=== PATIENT | female | born 1990 | race Hispanic/Latino ===

== ENCOUNTER 2021-03-28 04:25 | Emergency (ER) | payer OTHER ==
[2021-03-28 04:57] VITALS: BP 140/96
--- NOTE | 2021-03-28 07:01 | XRay Report ---
RIGHT KNEE 3 VIEWS INDICATION / CLINICAL INFORMATION: Injury with right knee pain. COMPARISON: None available. FINDINGS: BONES / JOINT(S): The joint spaces are well-maintained. No significant arthritis. There is no evidenc e of acute fracture, subluxation or joint effusion. SOFT TISSUES: No significant abnormality. ADDITIONAL FINDINGS: None. IMPRESSION: No acute abnormality. Signer Name: Manuel Damico MD Signed: 03/28/2021 6:56 AM Workstation Name: [id number]
[2021-03-28] MEDS ORDERED: KETOROLAC 60 MG/2 ML INJ IM ONE (07:30)
--- NOTE | 2021-03-28 07:36 | Emergency Department Report ---
ED Fall HPI - General Chief Complaint: Fall Stated Complaint: RIGHT KNEE PAIN Source: patient Mode of arrival: Wheelchair - History of Present Illness Initial Comments: 30-year-old female presents to the ED with right knee pain as the she trip and fell while walking downstairs. No obvious deformity noted. . She complained of pain when attempting to ambulate. No distracting injury noted. No obvious swelling noted. No ill appearance noted .No acute distress noted MD Complaint: fall -: This morning Fall From: down stairs (#) When Fall Occurred: 1-3 hours [employer] Fall Witnessed: no Place Fall Occurred: home Loss of Consciousness: none Prolonged Down Time?: no Symptoms Prior to Fall: none Location - Extremities: Right: Knee Severity: moderate Severity scale (0 -10): 7 Quality: aching Context: tripped/slipped Associated Symptoms: denies - Related Data Previous Rx's Medication Instructions Recorded Last Taken Type Naproxen [Naprosyn] 500 mg PO BID 15 Days #30 tablet 03/28/21 Unknown Rx Allergies Allergy/AdvReac Type Severity Reaction Status Date / Time No Known Allergies Allergy Verified 03/28/21 04:56 ED Review of Systems ROS: Stated complaint: RIGHT KNEE PAIN Other details as noted in HPI Constitutional: denies: chills, fever Eyes: denies: eye pain, eye discharge, vision change ENT: denies: ear pain, throat pain Respiratory: denies: cough, shortness of breath, wheezing Cardiovascular: denies: chest pain, palpitations Endocrine: no symptoms reported Gastrointestinal: denies: abdominal pain, nausea, diarrhea Genitourinary: denies: urgency, dysuria, discharge Musculoskeletal: arthralgia. denies: back pain, joint swelling Skin: denies: rash, lesions Neurological: denies: headache, weakness, paresthesias Psychiatric: denies: anxiety, depression Hematological/Lymphatic: denies: easy bleeding, easy bruising ED Past Medical Hx - Past Medical History Previous Medical History?: No - Social History Smoking Status: Never Smoker Substance Use Type: None - Medications Home Medications: Home Medications Medication Instructions Recorded Confirmed Last Taken Type Naproxen [Naprosyn] 500 mg PO BID 15 Days #30 tablet 03/28/21 Unknown Rx ED Physical Exam - General Limitations: No Limitations General appearance: alert, in no apparent distress - Head Head exam: Present: atraumatic, normocephalic - Eye Eye exam: Present: normal appearance - ENT ENT exam: Present: mucous membranes moist - Neck Neck exam: Present: normal inspection - Respiratory Respiratory exam: Present: normal lung sounds bilaterally. Absent: respiratory distress - Cardiovascular Cardiovascular Exam: Present: regular rate, normal rhythm. Absent: systolic murmur, diastolic murmur, rubs, gallop - GI/Abdominal GI/Abdominal exam: Present: soft, normal bowel sounds - Extremities Exam Extremities exam: Present: normal inspection - Back Exam Back exam: Present: normal inspection - Neurological Exam Neurological exam: Present: alert, oriented X3 - Psychiatric Psychiatric exam: Present: normal affect, normal mood - Skin Skin exam: Present: warm, dry, intact, normal color. Absent: rash ED Course Vital Signs 03/28/21 04:56 Temperature 98.0 F Pulse Rate 104 H Respiratory 18 Rate Blood Pressure 140/96 [Left] O2 Sat by Pulse 98 Oximetry ED Medical Decision Making - Radiology Data [facility] [address] [place] [address] XRay Report Signed Patient: ETHAN PATEL MR#: [id number] : 1990 Acct:[id number] Age/Sex: 30 / F ADM Date: 03/28/21 Loc: ED Attending Dr: Ordering Physician: JOSE COHEN MD Date of Service: 03/28/21 Procedure(s): XR knee 3V RT Accession Number(s): [id number] cc: JOSE COHEN MD Fluoro Time In Minutes: RIGHT KNEE 3 VIEWS INDICATION / CLINICAL INFORMATION: Injury with right knee pain. COMPARISON: None available. FINDINGS: BONES / JOINT(S): The joint spaces are well-maintained. No significant arthritis. There is no evidence of acute fracture, subluxation or joint effusion. SOFT TISSUES: No significant abnormality. ADDITIONAL FINDINGS: None. IMPRESSION: No acute abnormality. Signer Name: Manuel Damico MD Signed: 03/28/2021 6:56 AM Workstation Name: [id number] Transcribed By: RT Dictated By: Manuel Damico MD Electronically Authenticated By: Manuel Damico MD Signed Date/Time: 03/28/2156 DD/ 4 TD/TT: Print Cancel - Medical Decision Making 30-year-old female presents to the ED with right knee pain as the she trip and fell while walking downstairs. No obvious deformity noted. She complained of pain when attempting to ambulate. No distracting injury noted. mild swelling noted. No ill appearance noted .No acute distress noted. X-ray imaging shows no acute fracture. Benji wrap were applied and crutches given patient to follow- up with orthopedic. Discharge stable Critical care attestation.: If time is entered above; I have spent that time in minutes in the direct care of this critically ill patient, excluding procedure time. ED Disposition Clinical Impression: Fall Right knee pain Qualifiers: Chronicity: acute Qualified Code(s): M25.561 - Pain in right knee Disposition: 01 HOME / SELF CARE / HOMELESS Is pt being admited?: No Does the pt Need Aspirin: No Condition: Stable Instructions: Acute Knee Pain, Adult, Musculoskeletal Pain Additional Instructions: Follow-up with orthopedic doctor as needed Return to ED for any worsening symptom Take [id number] Tylenol as needed Prescriptions: Naproxen [Naprosyn] 500 mg PO BID 15 Days #30 tablet Referrals: RC OLIVARES MD [Staff Physician] - 3-5 Days Forms: Work/School Release Form(ED) Time of Disposition: 07:39
[2021-03-28] MEDS ORDERED: LIDOCAINE (1%) 10 MG/1 ML VIAL 20 ML MDV ONE (08:07)
[2021-03-28] MEDS ORDERED: KETOROLAC 30 MG/1 ML INJ IM ONE (08:08)
[2021-03-28] MEDS ORDERED: KETOROLAC 30 MG/1 ML INJ ONE (08:08)
== END 2021-03-28 08:23 | disposition home or self-care (01) ==
LOC: ED 04:25
DX: M25.561 Pain in right knee (principal); Z79.899 Other long term (current) drug therapy; W18.39XA Other fall on same level, initial encounter; Y93.89 Activity, other specified; Y92.89 Other specified places as the place of occurrence of the external cause; Y99.8 Other external cause status
CPT/HCPCS: 73562; 96372; 99284; J1885; 99283; J3490